=== PATIENT | male | born 1965 | race Caucasian/White ===

== ENCOUNTER 2025-02-26 09:34 | Outpatient (OUT) | payer BC, SELFPAY ==
--- OUTSIDE RECORDS SUMMARY | 2025-02-13 23:59 | XMS_ITS | Continuity of Care Document ---
Author Organization [facility] Address [address], [address] [place] [address] Care Team Providers Care Landscape Gardener Name Role Phone SHANT MELARA Primary Care Physician Encounter FT_AMBFIN [id number] Date(s): 02/13/25 - 02/13/25 [facility] [address] [place], [place] [address] Encounter Diagnosis Screening for malignant neoplasm of colon(Discharge Diagnosis) - 02/13/25 Reducible left inguinal hernia(Discharge Diagnosis) - 02/13/25 Discharge Disposition: Home (Routine DC) Attending Physician: Hitesh JEAN MD Encounter Type: Clinic Allergies, Adverse Reactions, Alerts No Known Medication Allergies Substance Criticality Severity Reaction Reaction Severity Status Adhesive Bandage Rash Act betzy Immunizations Given and Recorded Vaccine Date Status Refusal Reason SARS-CoV-2 (COVID-19) mRNA BNT-162b2 vax 1 03/30/21 Recorded SARS-CoV-2 (COVID-19) mRNA BNT-162b2 vax 2 03/09/21 Recorded 1Result Comment: 2025-01-28: TPV50 2Result Comment: 2025-01-28: TPV50 Medications atorvastatin 20 mg Tab 20 mg = 1 tab(s), Oral, Daily, Refills(s) 0 Start Date: 01/28/25 Status: Ordered Repeat number: 1 Avodart 0.5 mg Cap 0.5 mg = 1 cap(s), Oral, Daily, Refills(s) 0 Start Date: 01/28/25 Status: Ordered Repeat number: 1 Cialis 10 mg Tab 10 mg = 1 tab(s), Oral, Daily, PRN for erectile dysfunction, Refills(s) 0 Start Date: 01/28/25 Status: Ordered Repeat number: 1 Problem List Condition Confirmation Course Effective Dates Status Health Status Informant BPH (benign prostatic hyperplasia) Confirmed Active Erectile dysfunction Confirmed Active GERD (gastroesophageal reflux disease) Confirmed Active Hypercholesterolemia Confirmed Active Reducible left inguinal hernia Confirmed Active Screening for malignant neoplasm of colon Confirmed Active Seasonal allergic rhinitis Confirmed Active Vitamin D deficiency Confirmed Active Procedures Procedure Date Related Diagnosis Body Site Status Arthroscopy of knee Compl eted Tonsillectomy Completed Social History Social History Type Response Smoking Status Former smoker, quit more than 30 days ago;Never; Type: Cigarettes; Tobacco use per day: 1; Started at age: 17.0; Stopped at age: 29; entered on: 02/13/25 Sex Male Sex Representation Male (finding) Patient Care team information Care Team Personnel Name: KELTON MILLER, SHANT Nieves Position: FT Physician Member Role: Primary Care Physician Address: [address] [place] [address] [place] [address] Telecom: Care Team Related Persons Name: Janae Anderson Name: JANAE ANDERSON Name: REFUGIO MAYA Insurance Providers Guarantor name: Health Plan Information #: 1 Payer: Thu Payer Identifier: [id number] Member Number: [id number] Group Number: [id number] Subscriber Identifier: [id number] Relationship to Subscriber: spouse Coverage Type: PRIVATE HEALTH INSURANCE Coverage Verification Date: Telecom: Address: [address]
--- OUTSIDE RECORDS SUMMARY | 2025-02-26 09:39 | XMS_ITS | Clinical Summary ---
Author Organization [facility] Healthcare Address [address] [place] [address] Care Team Providers Care Line Assembler Aircraft Name Role Phone Rafiq Sesay MD Unavailable [phone] Rafiq Sesay MD Primary Care Provider [phone] Allergies No known active allergies Medications atorvastatin (Lipitor) 20 MG tabletIndication s:Hypercholester olemia TAKE 1 TABLET BY MOUTH EVERY DAY 90 tablet 2 5 Active tadalafil (Cialis) 10 MG tabletIndication s:Erectile dysfunction, unspecified erectile dysfunction type TAKE 1 TABLET BY MOUTH ONCE DAILY NEEDED FOR ERECTILE DYSFUNCTION 90 tablet 5 5 Active dutasteride (Avodart) 0.5 MG capsuleIndicatio ns:Benign prostatic hyperplasia with weak urinary stream Take 1 capsule (0.5 mg) by mouth Daily 90 capsule 3 5 01/23/20 26 Active Active Problems Problem Noted Date Diagnosed Date Benign prostatic hyperplasia with lower urinary tract symptoms 07/31/2023 Erectile dysfunction 07/31/2023 Gastro-esophageal reflux disease without esophag itis 07/31/2023 Seasonal allergic rhinitis due to pollen 024 Vitamin D deficiency 07/31/2023 Hypercholesterolemia 07/25/2023 Encounters Date Type Department Care Team Description 01/26/2025 Telephone [facility] [address] [place] [address] Rafiq Sesay MD 01/22/2025 8:30 AM EDT Office Visit [facility] [address] [place] [address] Rafiq Sesay MD Wellness examination (Primary Dx); Left inguinal hernia; Gastro-esophageal reflux disease without esophagitis; Benign prostatic hyperplasia with weak urinary stream; Vitamin D deficiency; Erectile dysfunction, unspecified erectile dysfunction type; Hypercholesterolemia ; Seasonal allergic rhinitis due to pollen 01/22/2025 [facility] [address] [place] [address] Rafiq Sesay MD 01/22/2025 Travel 01/21/2025 Results Follow-Up [facility] [address] [place] [address] Rafiq Sesay MD ALT, Basic metabolic panel, Lipid panel, Additional followed-up results: 2 01/15/2025 Orders Only [facility] [address] [place] [address] Shania Nix MA Hypercholesterolemia ; Benign prostatic hyperplasia with lower urinary tract symptoms, symptom details unspecified; Vitamin D deficiency 01/15/2025 Telephone [facility] [address] [place] [address] Shania Nix MA from Last 3 Months Family History Medical History Relation Name Comments Heart disease Father Hypertension Father Relation Name Status Comments Father Mother Alive Social History Tobacco Use Types Packs/Day Years Used Date Smoking Tobacco: Never Smokeless Tobacco: Never Tobacco Cessation:Counseling Given: Not Answered Alcohol Use Standard Drinks/Week Comments Never 0 (1 standard drink = 0.6 oz pur e alcohol) PHQ-2 Answer Date Recorded Patient Health Questionnaire-2 Score 0 01/22/2025 Sex and Gender Information Value Date Recorded Sex Assigned at Not on file Legal Sex Male 8:10 PM EDT Gender Identity Not on file Sexual Orientation Not on file Last Filed Vital Signs Vital Sign Reading Time Taken Comments Blood Pressure 138/74 01/22/2025 8:27 AM EDT Pulse 57 01/22/2025 8:27 AM EDT Temperature 36.4 C (97.5 F) 01/22/2025 8:27 AM EDT Respiratory Rate 18 10/16/2024 10:09 AM EDT Oxygen Saturation 98% 01/22/2025 8:27 AM EDT Inhaled Oxygen Concentration - - Weight 79.8 kg (176 lb) 01/22/2025 8:27 AM EDT Height 180.3 cm (5' 11 ) 01/22/2025 8:27 AM EDT Body Mass Index 24.55 01/22/2025 8:27 AM EDT Plan of Treatment Health Maintenance Due Date Last Done Comments CT Colonography 1964 Colonoscopy 1964 FIT 1964 FOBT 1964 Sigmoidoscopy 1964 Influenza Vaccine (#1) 2025 Colorectal Cancer Screening 09/30/2026 FIT-DNA 09/30/2026 10/01/2023, 06/26, 07/15/2020, Additional history exists Procedures Procedure Name Priority Date/Time Associated Diagnosis Comments VITAMIN D 1,25 DIHYDROXY Routine 01/21/2025 11:02 AM EDT Vitamin D deficiency PSA, TOTAL Routine 01/21/2025 11:02 AM EDT Benign prostatic hyperplasia with lower urinary tract symptoms, symptom details unspecified LIPID PANEL Routine 01/21/2025 11:02 AM EDT Hypercholesterolemia BASIC METABOLIC PANEL Routine 01/21/2025 11:02 AM EDT Hypercholesterolemia ALT Routine 01/21/2025 11:02 AM EDT Hypercholesterolemia LAB COLOGUARD COLON CANCER SCREEN Routine 10/01/2023 8:44 AM EDT Colon cancer screening from Last 3 Months or Most Recently Relevant to Health Maintenance Results * Vitamin D 1,25 dihydroxy (01/21/2025 11:02 AM EDT) Blood Venous blood specimen / Unknown us Rafiq Sesay MD LAB BLOOD ORDERABLES Final Res ult [facility] * ALT (01/21/2025 11:02 AM EDT) Blood Venous blood specimen / Unknown Rafiq Sesay MD LAB BLOOD ORDERABLES Final Res ult Performing Organization Address [facility] de Phone Number [facility] * PSA (01/21/2025 11:02 AM EDT) Blood Venous blood specimen / Unknown Rafiq Sesay MD LAB BLOOD ORDERABLES Final Res ult Performing Organization Address [facility] de Phone Number [facility] * Lipid panel (01/21/2025 11:02 AM EDT) Blood Venous blood specimen / Unknown Rafiq Sesay MD LAB BLOOD ORDERABLES Final Res ult Performing Organization Address [facility] de Phone Number [facility] * Basic metabolic panel (01/21/2025 11:02 AM EDT) Blood Venous blood specimen / Unknown Rafiq Sesay MD LAB BLOOD ORDERABLES Final Res ult Performing Organization Address [facility] de Phone Number [facility] * Cologuard?? colon cancer screening (10/01/2023 8:44 AM EDT) NONINV COLON CA DNA+OCC BLD SCRN STL-IMP Negative Negative 10/09/2023 11:47 AM EDT [email or web address] (CLIA #:[id number]) Comment: NEGATIVE TEST RESULT. A negative Cologuard result indicates a low likelihood that a colorectal cancer (CRC) or advanced adenoma (adenomatous polyps with more advanced pre-malignant features) is present. The chance that a person with a negative Cologuard test has a colorectal cancer is less than 1 in 1500 (negative predictive value >99.9%) or has an advanced adenoma is less than 5.3% (negative predictive value 94.7%). These data are based on a prospective cross-sectional study of 10,000 individuals at average risk for colorectal cancer who were screened with both Cologuard and colonoscopy. (Erin Schneider al, N Engl J Med 2014;370(14):0039-4537) The normal value (reference range) for this assay is negative. COLOGUARD RE-SCREENING RECOMMENDATION: Periodic colorectal cancer screening is an important part of preventive healthcare for asymptomatic individuals at average risk for colorectal cancer. Following a negative Cologuard result, the [place] [employer] Society and U.S. Multi-Society Task Force screening guidelines recommend a Cologuard re-screening interval of 3 years. References: [place] [employer] Guideline for Colorectal Cancer Screening: https://www.cancer.org/cancer/hpaqe-ashicm-tfiwwl/yyrfmvlwt-xeazvymrz-mygfzsv/ac s-rec ommendations.html.; Willian DK, Sen TERESA, Keysha VieraK, Colorectal Cancer Screening: Recommendations for Physicians and Patients from the U.S. Multi-Society Task Force on Colorectal Cancer Screening , Am J Gastroenterology 2017; 112:6609-2225. TEST DESCRIPTION: Composite algorithmic analysis of stool DNA-biomarkers with hemoglobin immunoassay. Quantitative values of individual biomarkers are not reportable and are not associated with individual biomarker result reference ranges. Cologuard is intended for colorectal cancer screening of adults of either sex, 45 years or older, who are at average-risk for colorectal cancer (CRC). Cologuard has been approved for use by the U.S. FDA. The performance of Cologuard was established in a cross sectional study of average-risk adults aged 50-84. Cologuard performance in patients ages 45 to 49 years was estimated by sub-group analysis of near-age groups. Colonoscopies performed for a positive result may find as the most clinically significant lesion: colorectal cancer [4.0%], advanced adenoma (including sessile serrated polyps greater than or equal to 1cm diameter) [20%] or non- advanced adenoma [31%]; or no colorectal neoplasia [45%]. These estimates are derived from a prospective cross-sectional screening study of 10,000 individuals at average risk for colorectal cancer who were screened with both Cologuard and colonoscopy. (Imperiale T. et al, N Engl J Med 2014;370(14):7759-9894.) Cologuard may produce a false negative or false positive result (no colorectal cancer or precancerous polyp present at colonoscopy follow up). A negative Cologuard test result does not guarantee the absence of CRC or advanced adenoma (pre-cancer). The current Cologuard screening interval is every 3 years. ([place] [employer] Society and U.S. Multi-Society Task Force). Cologuard performance data in a 10,000 patient pivotal study using colonoscopy as the reference method can be accessed at the following location: www.TellMi.com/results. Additional description of the Cologuard test process, warnings and precautions can be found at www.cologuard.com. Stool specimen (specimen) 10/01/2023 8:44 AM EDT 10/03/2023 11:51 AM EDT Rafiq Sesay MD LAB MOLECULAR DIAGNOSTICS [facility] Final Result .[employer] (CLIA #:[id number]) [address] [id number] [phone] [email or web address] (CLIA #:[id number]) [address] [id number] from Last 3 Months or Most Recently Relevant to Health Maintenance Insurance [facility] Care Teams Line Assembler Aircraft Relationship Specialty [place] [address] [place] [address] PCP - [place] [employer] 09/23/21 [place] [address] [place], [place] [id number] PCP - General Family Medicine 10/31/22
--- OUTSIDE RECORDS SUMMARY | 2025-02-26 09:39 | XMS_ITS | Encounter Summary ---
Author Organization [facility] Healthcare Address [address] [place] [address] Care Team Providers Care Director Funds Development Name Role Phone Rafiq Sesay MD Unavailable [phone] Rafiq Sesay MD Primary Care Provider [phone] Encounter Details Date Type Department Care Team (Late st Contact Info) Description 10/13/2024 Results Follow-Up [facility] [address] [facility] [address] [place] [address] [place] [address] [facility] [address] [place] [address] US abdomen limited Social History Tobacco Use Types Packs/Day Years Used Date Smoking Tobacco: Never Smokeless Tobacco: Never Alcohol Use Standard Drinks/Week Comments Never 0 (1 standard drink = 0.6 oz pur e alcohol) PHQ-2 Answer Date Recorded Patient Health Questionnaire-2 Score 0 10/16/2024 Sex and Gender Information Value Date Recorded Sex Assigned at Not on file Legal Sex Male 8:10 PM EDT Gender Identity Not on file Sexual Orientation Not on file documented as of this encounter Functional Status * Over the past 2 weeks, how often have you been bothered by any of the following problems? Question Answer Date of Assessment Author Little interest or pleasure in doing things Not at all 10/16/2024 10:12 AM DANIEL PAINTING Feeling down, depressed, or hopeless Not at all 10/16/2024 10:12 AM DANIEL PAINTING Patient Health Questionnaire -2 Score 0 10/16/2024 10:12 AM JENN PAINTINGLE documented as of this encounter Plan of Treatment Not on file documented as of this encounter Visit Diagnoses Not on filedocumented in this encounter Care Teams Director Funds Development Relationship Specialty [place] [address] [place] [address] PCP - [place] [employer] 09/23/21 [place] [address] [place] [id number] PCP - General Family Medicine 10/31/22 documented as of this encounter
--- OUTSIDE RECORDS SUMMARY | 2025-02-26 09:39 | XMS_ITS | Encounter Summary ---
Author Organization [facility] Healthcare Address [address] [place] [address] Care Team Providers Care Emulsification Operator Name Role Phone Rafiq Sesay MD Unavailable [phone] Rafiq Sesay MD Primary Care Provider [phone] Encounter Details Date Type Department Care Team (Late st Contact Info) Description 10/11/2024 External Result Encounter [facility] [address] [place] [address] [place] [address] [facility] [address] [place] [address] Social History Tobacco Use Types Packs/Day Years Used Date Smoking Tobacco: Never Smokeless Tobacco: Never Alcohol Use Standard Drinks/Week Comments Never 0 (1 standard drink = 0.6 oz pur e alcohol) PHQ-2 Answer Date Recorded Patient Health Questionnaire-2 Score 0 11/12/2023 Sex and Gender Information Value Date Recorded Sex Assigned at Not on file Legal Sex Male 8:10 PM EDT Gender Identity Not on file Sexual Orientation Not on file documented as of this encounter Plan of Treatment Not on file documented as of this encounter Procedures Procedure Name Priority Date/Time Associated Diagnosis Comments CT ABDOMEN PELVIS W IV CONTRAST 10/15/2024 3:21 PM EDT US ABDOMEN LIMITED 10/11/2024 10 :07 AM EDT documented in this encounter Results * CT abdomen pelvis w IV contrast (10/15/2024 3:21 PM EDT) Anatomical Region Laterality Modality Body, Pelvis, Abdomen Computed T omography 10/15/2024 3:21 PM EDT Narrative 10/15/2024 3:20 PM EDT THIS EXAM WAS PERFORMED AT [facility] CLINICAL INFORMATION: Acute right upper quadrant abdominal pain COMPARISON: Abdominal ultrasound 10/10/2024 TECHNIQUE: CT of the abdomen and pelvis with intravenous contrast. 100 mL of Omnipaque [address] scans at this facility use dose modulation, iterative reconstruction, and/or weight based dosing when appropriate to reduce radiation dose to as low as reasonably achievable. FINDINGS: LOWER CHEST: Visualized lung bases are clear. LIVER AND BILIARY: Noncirrhotic liver morphology. The gallbladder is nondistended. PANCREAS: Unremarkable. SPLEEN: Nonenlarged. ADRENALS: No suspicious adrenal nodules. KIDNEYS, URETERS, AND BLADDER: Symmetric enhancement of bilateral kidneys. No renal collecting system dilatation. Exophytic simple cyst at the superior pole of the urinary bladder appears unremarkable. The left kidney does not require additional imaging follow-up. GI TRACT AND PERITONEUM: The bowel is nondilated. The appendix is not well visualized but there are no secondary signs of appendicitis. VASCULATURE: Scattered atherosclerotic calcifications of the abdominal aorta without significant aneurysmal dilatation. LYMPH NODES: No lymphadenopathy in the abdomen or pelvis by strict size morphologic criteria. REPRODUCTIVE ORGANS: Mild prostatomegaly. MUSCULOSKELETAL: Multilevel degenerative spondylosis of the lumbar spine, with intervertebral disc spacer most pronounced at L4-5. No aggressive or suspicious osseous lesions. IMPRESSION: No evidence of acute abnormality in the abdomen or pelvis. Approved by Resident: Brenden Rogers DO on 10/15/2024 10:47 AM ILevy MD have personally reviewed the image(s) and agree with and/or edited the report Finalized by Levy Claudio MD on 10/15/2024 3:20 PM Procedure Note Radiology, Radiologist, - 10/15/2024 THIS EXAM WAS PERFORMED AT [facility] CLINICAL INFORMATION: Acute right upper quadrant abdominal pain COMPARISON: Abdominal ultrasound 10/10/2024 TECHNIQUE: CT of the abdomen and pelvis with intravenous contrast. 100 mL ofOmnipaque [address] scans at this facility use dosemodulation, iterative reconstruction, and/or weight based dosing whenappropriate to reduce radiation dose to as low as reasonably achievable. FINDINGS: LOWER CHEST: Visualized lung bases are clear. LIVER AND BILIARY: Noncirrhotic liver morphology. The gallbladder isnondistended. PANCREAS: Unremarkable. SPLEEN: Nonenlarged. ADRENALS: No suspicious adrenal nodules. KIDNEYS, URETERS, AND BLADDER: Symmetric enhancement of bilateral kidneys.No renal collecting system dilatation. Exophytic simple cyst at thesuperior pole of the urinary bladder appears unremarkable. The left kidneydoes not require additional imaging follow-up. GI TRACT AND PERITONEUM: The bowel is nondilated. The appendix is not wellvisualized but there are no secondary signs of appendicitis. VASCULATURE: Scattered atherosclerotic calcifications of the abdominalaorta without significant aneurysmal dilatation. LYMPH NODES: No lymphadenopathy in the abdomen or pelvis by strict sizemorphologic criteria. REPRODUCTIVE ORGANS: Mild prostatomegaly. MUSCULOSKELETAL: Multilevel degenerative spondylosis of the lumbar spine,with intervertebral disc spacer most pronounced at L4-5. No aggressive orsuspicious osseous lesions. IMPRESSION: No evidence of acute abnormality in the abdomen or pelvis. Approved by Resident: Brenden Rogers DO on 10/15/2024 10:47 AM IeLvy MD have personally reviewed the image(s) and agreewith and/or edited the report Finalized by Levy Claudio MD on 10/15/2024 3:20 PM us Rafiq Sesay MD IMG CT PROCEDURES Final Result * US abdomen limited (10/11/2024 10:07 AM EDT) Anatomical Region Laterality Modality Abdomen Ultrasound 10/11/2024 10:0 7 AM EDT Narrative 10/11/2024 10:06 AM EDT THIS EXAM WAS PERFORMED AT [facility] Clinical history:Biliary colic Comparison: None. Findings: Real-time sonographic evaluation of the abdomen performed. Because portions of pancreas appear unremarkable. The liver is unremarkable echotexture and appearance. Main portal vein is patent with hepatopedal flow. The gallbladder is unremarkable. There is no pericholecystic fluid, gallbladder wall thickening or cholelithiasis. Common bile duct measures 0.4 cm. Impression: Unremarkable sonographic appearance of the right upper quadrant and gallbladder. Finalized by Hitesh Bernal MD on 10/11/2024 10:06 AM Procedure Note Radiology, Radiologist, - 10/11/2024 THIS EXAM WAS PERFORMED AT [facility] Clinical history:Biliary colic Comparison: None. Findings: Real-time sonographic evaluation of the abdomen performed. Becauseportions of pancreas appear unremarkable. The liver is unremarkableechotexture and appearance. Main portal vein is patent with hepatopedalflow. The gallbladder is unremarkable. There is no pericholecystic fluid, gallbladder wall thickening orcholelithiasis. Common bile duct measures 0.4 cm. Impression: Unremarkable sonographic appearance of the right upper quadrant andgallbladder. Finalized by Hitesh Bernal MD on 10/11/2024 10:06 AM us Rafiq Sesay MD IMG US PROCEDURES Final Result documented in this encounter Visit Diagnoses Not on filedocumented in this encounter Care Teams Emulsification Operator Relationship Specialty Start [place] [address] [place] [id number] PCP - [place] [employer] 09/23/21 [place] [address] [place] [address] PCP - General Family Medicine 10/31/22 documented as of this encounter
--- OUTSIDE RECORDS SUMMARY | 2025-02-26 09:39 | XMS_ITS | Clinical Summary ---
Author Organization [employer] tem Address [id number] [address] [place] [address] Care Team Providers Care Manager Rail Name Role Phone Rafiq Sesay MD Primary Care Provider Allergies No known active allergies Medications atorvastatin (LIPITOR) 10 mg tablet Take 10 mg by mouth daily. Active VITAMIN E, DL,TOCOPHERYL ACET, (VITAMIN E, DL, ACETATE,) 400 unit capsule Take 400 Units by mouth daily. Active CEPHalexin (KEFLEX) 500 mg capsuleIndicatio ns:Skin lesion One tab three times a day for 7 days 21 capsule 08/07/2018 Active ondansetron (ZOFRAN) 4 mg tabletIndication s:Skin lesion One tab every 4 hours as needed for nausea or emesis 20 tablet 08/07/2018 Active Social History Tobacco Use Types Packs/Day Years Used Date Smoking Tobacco: Former Smokeless Tobacco: Never Comments:quit 20 years ago Alcohol Use Standard Drinks/Week Comments No 0 (1 standard drink = 0.6 oz pur e alcohol) Childcare Answer Date Recorded Childcare Unknown 12/04/2018 Employment Answer Date Recorded Employment Unknown 12/04/2018 Purpose - Life Answer Date Recorded Purpose and direction in life Unknown Sex and Gender Information Value Date Recorded Sex Assigned at Not on file Legal Sex Male 11:37 AM EDT Gender Identity Not on file Sexual Orientation Not on file Last Filed Vital Signs Vital Sign Reading Time Taken Comments Blood Pressure 105/102 08/07/2018 1:51 PM EST Pulse 83 08/07/2018 11:45 AM EST Temperature 36.4 C (97.5 F) 08/07/2018 1:51 PM EST Respiratory Rate 16 08/07/2018 11:45 AM EST Oxygen Saturation 100% 08/07/2018 1:51 PM EST Inhaled Oxygen Concentration - - Weight 83.9 kg (185 lb) 08/07/2018 11:45 AM EST Height 180.3 cm (5' 11 ) 08/07/2018 11:45 AM EST Body Mass Index 25.8 08/07/2018 11:45 AM EST Plan of Treatment Health Maintenance Due Date Last Done Comments Depression Screening 1976 Tobacco Screening 1976 Adult BMI Screening 1982 DTaP,Tdap and Td Vaccines (1 - Tdap) 1983 Zoster (Shingles) Vaccine (1 of 2) 2014 COVID-19 Vaccine ( season) 02/24/202411/2020, 03/09/2021 Influenza Vaccine 02/23/2025 Medical Devices Not on file Insurance ANTHEM Care Teams Manager Rail Relationship Specialty [place] [address] [place] [address] PCP - General 06/19/13
--- OUTSIDE RECORDS SUMMARY | 2025-02-26 09:39 | XMS_ITS | Patient Health Record ---
Author Organization [facility] [place] Address [address] [place] [address] Care Team Providers Care Associate [employer] Retail Name Role Phone Lázaro MILLER, Rafiq Primary Care Provider Unavailab le Reason For Referral No Information Medications Medication SIG (Take, Route, Fr equency, Duration) Notes Start Date End Date Status Cephalexin 500 MG 1 capsule Orally TID for 10 day(s) 09/09/2018 Active Social History Tobacco Use: Social History Observation Description Date Details (start date - stop date) Unknown if ever smoked NA - NA Tobacco Use/Smoking Question Answer Notes Patient is a unknown if ever smoked Plan Of Treatment No Information Insurance Providers Payer Name Payer Address Payer Phone Subscriber Number Group Number Insured Name Patient Relationship to Insured Coverage Start Date Coverage End Date ANSHU MARTINS [address] [place] [address] [id number] Madhu Anderson Self - patient is the insured Medical (General) History Surgical History Surgery Date(Month/Year) Excision multiple benign skin lesions 2018
--- OUTSIDE RECORDS SUMMARY | 2025-02-26 09:39 | XMS_ITS | Encounter Summary ---
Author Organization [facility] Healthcare Address [address] [place] [address] Care Team Providers Care Hot Header Operator Name Role Phone Rafiq Sesay MD Unavailable [phone] Rafiq Sesay MD Primary Care Provider [phone] Encounter Details Date Type Department Care Team (Late st Contact Info) Description 01/21/2025 Results Follow-Up [facility] Family Medicine [address] [facility] [address] [place] [address] [place] [address] [facility] [address] [place] [address] ALT, Basic metabolic panel, Lipid panel, Additional followed-up results: 2 Social History Tobacco Use Types Packs/Day Years [...] pleasure in doing things Not at all 01/22/2025 8:29 AM EDT Chary Fraire M A Feeling down, depressed, or hopeless Not at all 01/22/2025 8:29 AM ASHLEYT Chary Fraire M A Patient Health Questionnaire -2 Score 0 01/22/2025 8:29 AM EDT Chary Fraire M A documented as of this encounter Plan of Treatment Not on file documented as of this encounter Visit Diagnoses Not on filedocumented in this encounter Care Teams Hot Header Operator Relationship Specialty [place] [address] [place] [address] PCP - [facility] 09/23/21 [place] [address] [place] [address] PCP - General Family Medicine 10/31/22 documented as of this encounter
--- NOTE | 2025-02-26 09:52 | ECG_ITS ---
[facility] Test Date: 2025-02-26 Pat Name: HAO PRATT Department: Room: - Gender: Male Divemaster: : 1965 Requested By: VIJAY JEAN Order Number: [id number] Reading MD: KURT BEATTY Measurements Intervals [place] Rate: 62 P: 38 MN: 148 QRS: 57 QRSD: 97 T: 47 QT: 417 QTc: 426 Interpretive Statements SINUS RHYTHM POSSIBLE RIGHT VENTRICULAR CONDUCTION DELAY [RSR (QR) IN V1/V2] No previous ECG available for comparison Electronically Signed On 02-26-2025 16:04:16 EDT by KURT BEATTY
== END 2025-02-26 09:35 | disposition home or self-care (01) ==
LOC: PST 09:37
PROVIDERS: Visit Provider Surgery
DX: Z01.810 Encounter for preprocedural cardiovascular examination (principal); K40.90 Unilateral inguinal hernia, without obstruction or gangrene, not specified as recurrent
CPT/HCPCS: 93005

== ENCOUNTER 2025-03-11 07:51 | Day surgery (SDC) | payer BC, SELFPAY ==
[2025-02-26 10:27] VITALS: BP 144/88; PULSE 69; TEMP 36.3; O2SAT 99; BMI 25.8
[2025-03-11] VITALS (10 sets, daily range): BP systolic 131–162; BP diastolic 88–102; PULSE 78–90; TEMP 36.1–36.3; O2SAT 95–98; BMI 24.9
--- NOTE | 2025-03-11 | OP_ITS ---
OPERATION DATE: 03/11/2025 PREOPERATIVE DIAGNOSIS: Left inguinal hernia. POSTOPERATIVE DIAGNOSIS: Indirect left inguinal hernia. PROCEDURE: Left inguinal herniorrhaphy with mesh patch insertion. SURGEON: Hitesh Gandhi M.D. ANESTHESIA: General with laryngeal mask airway, as well as left sided TAP block per Dr. Reed. ESTIMATED BLOOD LOSS: Less than 10 mL. INDICATIONS AND CONSENT: Patient is a 59-year-old male with a several month history of a symptomatic, reducible left inguinal hernia. Indications, risks, benefits, alternatives of proceeding with herniorrhaphy were explained extensively to the patient, including the risks of bleeding, infection, scarring, pain, recurrent hernia, nerve injury, testicular injury, blood clot, pulmonary embolus, heart attack, anesthetic complications, need for further surgery or mesh removal. All of his questions were answered. Informed consent was obtained. PROCEDURE: Patient brought to the operating room, placed in the supine position. A left sided TAP block was performed by Dr. Reed in the holding area. General anesthesia was then induced. Patient was prepped and draped in the usual sterile fashion. A left groin incision was made in the area of the skin crease and carried down through subcutaneous tissue using sharp dissection as well as electrocautery. The attenuated external oblique was opened along the direction of its fibers, down through the external inguinal ring. Ilioinguinal nerve branch was irritated and in the way of the dissection and where the mesh would lie. So, this was excised and the ends were ligated with 3-0 Vicryl ties. The cord structures were mobilized and retracted with a Raman drain. There was found to be an indirect hernia sac that was freed up from the cord structures, all the way up to the internal ring. It was opened, found to be empty. A high ligation was then performed with the 3-0 Vicryl suture. The area was then copiously irrigated with antibiotic saline. There was good hemostasis. The Covidien patch was then placed on the floor of the inguinal canal. The arms were placed around the cord structures. It was secured circumferentially using interrupted 3-0 Vicryl sutures. Care was taken to avoid undo tension on the cord structures. The wound was irrigated with antibiotic saline. There was good hemostasis. The external oblique was closed with a running 3-0 Vicryl suture. The subcutaneous tissue was then injected with the remaining Exparel solution. Elver?s fascia was re-approximated with interrupted 3-0 Monocryl suture. The skin was then closed with a running 4-0 subcuticular Monocryl suture and skin glue. Sterile pressure dressing was applied. Sponge and needle counts were correct x2 per nursing personnel. Patient tolerated procedure well, was sent to recovery room in good condition. CC: Patient?s family physician FLORI
--- OUTSIDE RECORDS SUMMARY | 2025-03-11 07:54 | XMS_ITS | Clinical Summary ---
Author Organization [facility] Address [address] [place] [address], [address] [place] [address] Care Team Providers Care Heavy Media Operator Name Role Phone Unavailable Primary Care Provider Unavailabl e Social History Tobacco Use Types Packs/Day Years Used Date Smoking Tobacco: Never Assessed Sex and Gender Information Value Date Recorded Sex Assigned at Not on file Legal Sex Male 11:37 AM EST Gender Identity Not on file Sexual Orientation Not on file Plan of Treatment Not on file
--- OUTSIDE RECORDS SUMMARY | 2025-03-11 07:54 | XMS_ITS | Encounter Summary ---
Author Organization [facility] Healthcare Address [address] [place] [address] Care Team Providers Care [employer] Assistant Manager Name Role Phone Rafiq Sesay MD Unavailable Rafiq Sesay MD Primary Care Provider [phone] Encounter Details Date Type Department Care Team (Late st Contact Info) Description 01/21/2025 Results Follow-Up [facility] Family Medicine [address] [facility] [address] [place] [address] [place] [address] [facility] [address] [place] [address] ALT, Basic metabolic panel, Lipid panel, Additional [...] on filedocumented in this encounter Care Teams [employer] Assistant Manager Relationship Specialty [place] [address] [place] [address] PCP - [facility] 09/23/21 [place] [address] [place] [address] PCP - General Family Medicine 10/31/22 documented as of this encounter
--- OUTSIDE RECORDS SUMMARY | 2025-03-11 07:54 | XMS_ITS | Clinical Summary ---
Author Organization [employer] tem Address [facility] [id number] [address] [place] [id number] Care Team Providers Care Supervisor Fish Hatchery Name Role Phone Rafiq Sesay MD Primary [...] (1 of 2) 2014 COVID-19 Vaccine ( - season) 02/23/202511/2020, 03/09/2021 Influenza Vaccine 02/23/2025 Medical Devices Not on file Insurance ANTHEM Care Teams Supervisor [employer] Hatcher[employer] Relationship Specialty [place] [address] [place] [address] PCP - General 06/19/13
--- OUTSIDE RECORDS SUMMARY | 2025-03-11 07:54 | XMS_ITS | Patient Health Record ---
Author Organization [facility] [place] Address [address] [place] [address] Care Team Providers Care Asp Net Programmer Name Role Phone Lázaro MILLER, Rafiq Primary Care Provider Unavailab le Reason For Referral No Information Medications Medication SIG (Take, Route, Fr equency, Duration) Notes Start Date End Date Status Cephalexin 500 MG 1 capsule Orally TID ; Duration: 10 day(s) 09/09/2018 Active Social History Tobacco [...] Coverage End Date ANSHU MARTINS [address] [place] [address] [id number] Madhu Anderson Self - patient is the insured Medical (General) History Surgical History Surgery Date(Month/Year) Excision multiple benign skin lesions 2018
--- OUTSIDE RECORDS SUMMARY | 2025-03-11 07:54 | XMS_ITS | Clinical Summary ---
Author Organization [facility] Healthcare Address [address] [place] [address] Care Team Providers Care Advertising Material Distributor Name Role Phone Rafiq Sesay MD Unavailable [phone] Rafiq Sesay MD Primary Care Provider [phone] Allergies No known active allergies Medications atorvastatin [...] Type Department Care Team Description 01/26/2025 Telephone [facility] [address] [place] [address] Rafiq Sesay MD 01/22/2025 8:30 AM EDT Office Visit [facility] [address] [place] [address] Rafiq Sesay MD Wellness examination (Primary Dx); Left inguinal hernia; Gastro-esophageal reflux disease without esophagitis; Benign prostatic hyperplasia with weak urinary stream; Vitamin D deficiency; Erectile dysfunction, unspecified erectile dysfunction type; Hypercholesterolemia ; Seasonal allergic rhinitis due to pollen 01/22/2025 [facility] [address] [place] [address] Rafiq Sesay MD 01/22/2025 Travel 01/21/2025 Results Follow-Up [facility] Medicine [address] [place] [address] Rafiq Sesay MD ALT, Basic metabolic panel, Lipid panel, Additional followed-up results: 2 01/15/2025 Orders Only [facility] Medicine [address] [place] [address] Shania Nix MA Hypercholesterolemia ; Benign prostatic hyperplasia with lower urinary tract symptoms, symptom details unspecified; Vitamin D deficiency 01/15/2025 Telephone [facility] [address] [place] [address] Shania Nix MA from Last 3 Months [...] ORDERABLES Final Res ult Performing Organization Address [facility] de Phone Number [facility] * PSA (01/21/2025 11:02 AM EDT) Blood Venous blood specimen / Unknown Rafiq Sesay MD LAB BLOOD ORDERABLES Final Res ult Performing Organization Address [facility] de Phone Number [facility] * Lipid panel (01/21/2025 11:02 AM EDT) Blood Venous blood specimen / Unknown Rafiq Sesay MD LAB BLOOD ORDERABLES Final Res ult Performing Organization Address [facility] de Phone Number [facility] * Basic metabolic panel (01/21/2025 11:02 AM EDT) Blood Venous blood specimen / Unknown Rafiq Sesay MD LAB BLOOD ORDERABLES Final Res ult Performing Organization Address [facility] de Phone Number [facility] * Cologuard?? colon cancer screening (10/01/2023 8:44 AM EDT) NONINV COLON CA DNA+OCC BLD SCRN STL-IMP Negative Negative 10/09/2023 11:47 AM EDT [employer] (CLIA #:[id number]) Comment: NEGATIVE TEST RESULT. A negative Cologuard [...] (Erin Schneider al, N Engl J Med 2014;370(14):8116-5862) The normal value (reference range) for this assay is negative. COLOGUARD RE-SCREENING RECOMMENDATION: Periodic colorectal cancer screening is an important part of preventive healthcare for asymptomatic individuals at average risk for colorectal cancer. Following a negative Cologuard result, the [place] Cancer Society and U.S. Multi-Society Task Force screening guidelines recommend a Cologuard re-screening interval of 3 years. References: [place] [employer] Guideline for Colorectal Cancer Screening: https://www.cancer.org/cancer/uxrqb-yptyxk-bfhwab/aykzbrfht-ojrplhsbw-denhnuh/ac s-rec ommendations.html.; Willian DK, Sen TERESA, Keysha VieraK, Colorectal Cancer Screening: Recommendations for Physicians and Patients from the U.S. Multi-Society Task Force on Colorectal Cancer Screening , Am J Gastroenterology 2017; 112:8486-7800. TEST DESCRIPTION: Composite algorithmic analysis of stool [...] T. et al, N Engl J Med 2014;370(14):0874-9812.) Cologuard may produce a false negative or false positive result (no colorectal cancer or precancerous polyp present at colonoscopy follow up). A negative Cologuard test result does not guarantee the absence of CRC or advanced adenoma (pre-cancer). The current Cologuard screening interval is every 3 years. ([place] Cancer Society and U.S. Multi-Society Task Force). Cologuard performance data in a 10,000 patient pivotal study using colonoscopy as the reference method can be accessed at the following location: www.[employer].com/results. Additional description of the Cologuard test process, warnings and precautions can be found at www.cologuard.com. Stool specimen (specimen) 10/01/2023 8:44 AM EDT 10/03/2023 11:51 AM EDT Rafiq Sesay MD LAB MOLECULAR DIAGNOSTICS ACE [facility]AS Final Result .[employer] (CLIA #:[id number]) [address] [id number] [phone] [employer] (CLIA #:[id number]) [address] [id number] from Last 3 Months or Most Recently Relevant to Health Maintenance Insurance [facility] Care Teams Advertising Material Distributor Relationship Specialty [place] [address] [place] [address] PCP - [place] [facility] 09/23/21 [place] [address] [place], [place] [id number] PCP - General Family Medicine 10/31/22
--- OUTSIDE RECORDS SUMMARY | 2025-03-11 07:54 | XMS_ITS | Encounter Summary ---
Author Organization [facility] Healthcare Address [address] [place] [address] Care Team Providers Care User Experience Researcher Name Role Phone Rafiq Sesay MD Unavailable [phone] Rafiq Sesay MD Primary Care Provider [phone] Encounter Details Date Type Department Care Team (Late st Contact Info) Description 10/13/2024 Results Follow-Up [facility] Family Medicine [address] [facility] [address] [place] [address] [place] [address] [facility] [address] [place] [address] US abdomen limited Social History Tobacco Use [...] on filedocumented in this encounter Care Teams User Experience Researcher Relationship Specialty [place] [address] [place] [address] PCP - [place] [facility] 09/23/21 [place] [address] [place] [address] PCP - General Family Medicine 10/31/22 documented as of this encounter
--- OUTSIDE RECORDS SUMMARY | 2025-03-11 07:54 | XMS_ITS | Encounter Summary ---
Author Organization [facility] Healthcare Address [address] [place] [address] Care Team Providers Care Gis Engineer Name Role Phone Rafiq Sesay MD Unavailable [phone] Rafiq Sesay MD Primary Care Provider [phone] Encounter Details Date Type Department Care Team (Late st Contact Info) Description 10/11/2024 External Result Encounter [facility] Family Medicine [address] [facility] [address] [place] [address] [place] [address] [facility] [address] [place] [address] Social History Tobacco Use Types Packs/Day Years [...] PM EDT THIS EXAM WAS PERFORMED AT [facility] CLINICAL INFORMATION: Acute right upper quadrant abdominal [...] - 10/15/2024 THIS EXAM WAS PERFORMED AT [facility] CLINICAL INFORMATION: Acute right upper quadrant abdominal [...] AM EDT THIS EXAM WAS PERFORMED AT [facility] Clinical history:Biliary colic Comparison: [...] - 10/11/2024 THIS EXAM WAS PERFORMED AT [facility] Clinical history:Biliary colic Comparison: None. Findings: Real-time [...] on filedocumented in this encounter Care Teams Gis Engineer Relationship Specialty [place] [address] [place] [address] PCP - [place] 09/23/21 [place] [address] [place] [address] PCP - General Family Medicine 10/31/22 documented as of this encounter
[2025-03-11] MEDS: CEFAZOLIN SODIUM 2 GM/50 ML D5W PREMIX IV (10:02)
[2025-03-11] MEDS: 0.9 % SODIUM CHLORIDE 10 ML VIAL INJ ×2 (10:33→10:37)
[2025-03-11] MEDS: BUPIVACAINE LIPOSOME/PF 266 MG/20 ML VIAL INJ (10:34)
[2025-03-11] MEDS: BUPIVACAINE HCL 0.25% PF 25 MG/10 ML VIAL INJ (10:34)
[2025-03-11] MEDS: CEFAZOLIN SODIUM 1,000 MG in 0.9 % SODIUM CHLORIDE 10 ML 1 MG IRR (10:38)
--- NOTE | 2025-03-11 11:59 | PC.NURSE ---
Pre op block performed this a.m. Patient was consented and a Time out was performed at 0950. Patient placed on monitors and O2 via nasal cannula. Patient was medicated by Dr. Reed. Bedside ultrasound was used by Dr. Reed to locate appropriate site for block. Block started at 0957 and ended at 0959. Patient tolerated well and voiced no complaints or concerns. Patient remained on O2 and monitors until taken to the OR.
== END 2025-03-11 13:08 | disposition home or self-care (01) ==
PROVIDERS: Visit Provider Surgery
PROC: (CPT 830; principal; 2025-03-11 09:10)
DX: K40.90 Unilateral inguinal hernia, without obstruction or gangrene, not specified as recurrent (principal); E78.00 Pure hypercholesterolemia, unspecified; K21.9 Gastro-esophageal reflux disease without esophagitis; N40.0 Benign prostatic hyperplasia without lower urinary tract symptoms; Z87.891 Personal history of nicotine dependence
CPT/HCPCS: 49505; 64488; C1781; J0665; J0690; J1100; J1885; J2250; J2405; J2704; J3010